=== PATIENT | female | born 1995 | race Caucasian/White ===

== ENCOUNTER 2021-07-04 07:45 | Emergency (ER) | payer MEDICAID ==
[~2021-07-04] VITALS: Ht 162.6 cm; Wt 75.0 kg
[2021-07-04] MEDS ORDERED: PREN1TAB23 PO (08:04)
[2021-07-04 09:14] LABS: CLARITY URINE HAZY (CLEAR); COLOR URINE YELLOW (YELLOW)
[2021-07-04 09:15] LABS: KETONES URINE NEGATIVE (NEGATIVE); NITRITE URINE NEGATIVE (NEGATIVE); OCCULT BLOOD URINE 3+ (NEGATIVE); PROTEIN URINE NEGATIVE (NEGATIVE); SPECIFIC GRAVITY URINE 1.013 (1.005-1.030)
[2021-07-04 09:16] LABS: LEUKOCYTE ESTERASE URINE TRACE (NEGATIVE); UROBILINOGEN URINE 0.2 E.U./dL (0.2-1.0)
[2021-07-04 10:43] LABS: BASOPHILS % 1.3 % (0.0-2.0); EOSINOPHILS % 3.5 % (0.0-5.0); HEMATOCRIT. 37.9 % (36.0-48.0); HEMOGLOBIN. 12.7 g/dL (12.0-16.0); LYMPHOCYTES % 40.8 % (20.0-50.0); MEAN CORPUSCULAR HEMOGLOBIN 28.9 pg (28.0-32.0); MEAN CORPUSCULAR VOLUME 86.5 fL (81.0-99.0); MEAN PLATELET VOLUME 7.4 fl (7.4-10.4); MONOCYTES % 11.4 % (2.0-8.0); PLATELET 381 x1000/uL (130-400); RED BLOOD CELL COUNT 4.38 mill/uL (4.2-5.4); RED CELL DISTRIBUTION WIDTH 13.9 % (11.6-14.6)
[2021-07-04 10:49] LABS: CHLORIDE 107 mEq/L (98-107)
[2021-07-04 11:00] LABS: B-HCG QUANTITATIVE < 1 mIU/mL (<3)
[2021-07-04] MEDS ORDERED: NITR-87 MT (11:23)
[2021-07-04 11:30] VITALS: BP 131/77
== END 2021-07-04 11:31 | disposition home or self-care (01) ==
LOC: ER 07:45
DX: O23.11 Infections of bladder in pregnancy, first trimester (principal); Z3A.09 9 weeks gestation of pregnancy
CPT/HCPCS: 36415; 76830; 76856; 80053; 81003; 81025; 84702; 85025; 86850; 86900; 99284